=== PATIENT | female | born 1945 | race Caucasian/White ===

== ENCOUNTER 2020-08-12 12:45 | Outpatient (CLI) | payer MEDICARE, OTHER ==
--- NOTE | 2020-08-12 17:23 | CONSULTATION NOTE ---
Palliative Care Consultation - Referral Referring Provider: Dr. 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 She presented with shortness of breath and cough, in April 2020. She initially underwent a chest x-ray, that showed lung consolidation and received a course of antibiotics and steroids. Unfortunately without improvement, she underwent a CT of the chest on 06/12/2020 that showed a right- sided lung mass, bilateral pulmonary nodules, mediastinal and hilar adenopathy and liver lesions. 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 She also underwent an MRI of the brain 06/14 that showed multiple small lesions, and a CT of the abdomen and pelvis which was obtained on 07/02 that showed multiple liver lesions and a small right pleural effusion. Most persistently she has had cough, originally she had some chest pain and discomfort,Persistent fatigue, and some weight loss. She was originally worked up at [place] with Dr. Shankar, but was hoping to pursue clinical trials, so had a second opinion at [facility]. Originally she was looking at an available clinical trial there, unfortunately with her second CT scan, which showed she had significant progression, with bulky mediastinal adenopathy which was enveloping and mildly narrowing multiple proximal pulmonary vessels and the SVC appear to be mildly narrowed. They were quite disappointed on this, but actually feel like she has had some improvement on the osimertinib, With decreased cough, increased energy, improved nausea, and voice hoarseness improved. Though of note she did start the dexamethasone 2 mg about a week ago, she reports she is only take 7 days, and this will be completed today. Her most persistent symptoms continue to be the cough, her hoarseness, fatigue is improved, and does have underlying and significant anxiety. This would be understandable in the context of her diagnosis and everything she has been to over the last couple months. Palliative care has been asked to meet with patient and , to provide an extra layer of support, and provide support for symptom management and anticipatory guidance. 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 Support System: Patient lives with her cori Juarez, they have been over 55 years. He was here in the [place], and returned to [facility] to retire after he had finished his career as a master pilot. 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 They have 2 sons and a daughter, and 3 grandchildren. They do have friends and community as they have been here for quite a while, they have a [place]i home and in [place]. Family History - Family History Family History: Mother: , Alzheimer's Disease (age 88), Father: , CVA/TIA (age 90), Sister: Alive and Well (no other cancer in family), Brother: Alive and Well, CAD Medications/Allergies - Medications Home Medications: Ambulatory Orders Medication Instructions Recorded Confirmed atenoloL [Atenolol] 25 mg PO DAILY 07/27/14 08/12/20 Albuterol Sulf [Ventolin Hfa 2 puffs INH Q6HR PRN 08/12/20 08/12/20 Inhaler] Dextromethorphan Polistirex 5 ml PO BID PRN 08/12/20 08/12/20 [Delsym] Loperamide [Imodium] 2 mg PO PRN PRN MDD 8 tabs 08/12/20 08/12/20 Multivitamin [Daily Multiple 1 tab PO DAILY 08/12/20 08/12/20 Vitamin] Ondansetron [Zuplenz] 4 mg PO Q6HR PRN 08/12/20 08/12/20 Osimertinib Mesylate [Tagrisso] 80 mg PO DAILY 08/12/20 08/12/20 - Allergies Allergies/Adverse Reactions: Allergies Allergy/AdvReac Type Severity Reaction Status Date / Time prochlorperazine edisylate * Allergy Unknown Verified 07/27/14 12:26 [From Compazine] prochlorperazine maleate * Allergy Unknown Verified 07/27/14 12:26 [From Compazine] Review of Systems - Constitutional Constitutional: reports: Fatigue, Weight loss (130; lost about 6 pounds; pleased with nutritional consult from [facility]) - Ears, Nose & Throat Ears, Nose & Throat: reports: Hoarseness - Cardiovascular Cardiovascular: reports: Exertional dyspnea, Decr. exercise tolerance, Other (occ premature beats) - Respiratory Respiratory: reports: Cough (persistent and dry; non productive), SOB with exertion. denies: Wheezing, SOB at rest - Gastrointestinal Gastrointestinal: reports: Diarrhea (using immodium every 3 days; not watery just loose), Nausea (improved but low grade; responsive to ondansetron), Early satiety. denies: Constipation, Reflux/heartburn - Musculoskeletal Musculoskeletal: reports: Stiffness - Integumentary Integumentary: reports: Rash, Pruritis (with dyes with MRI), Dryness - Psychiatric Psychiatric: reports: Anxiety - Hematologic/Lymphatic Hematologic/Lymph: denies: Recurrent infections - All Other Systems All Other Systems: reports: Reviewed and negative Physical Exam - Vital Signs Temperature: 98.2 C Pulse Rate: 90 Respiratory Rate: 18 O2 Saturation: 98 (ra @ rest) Blood Pressure: 122/70 - Physical Exam General Appearance: positive: No acute distress, Alert, Anxious Eyes Bilateral: positive: Other (periorbital edema) ENT: positive: No signs of dehydration Neck: positive: Trachea midline, Other (few scattered nodes palpable) Cardiovascular: positive: Regular rate & rhythm, Tachycardia Respiratory: positive: No respiratory distress, Diminished in bases. negative: Wheezes, Rales, Rhonchi Abdomen: positive: Soft Skin: positive: Pallor, Dryness Extremities: positive: No pedal edema Neurologic/Psychiatric: positive: Oriented x3, Mood/affect nml, Flat affect Palliative Care - POLST Patient has POLST: No Pain: Pain improved, Location (chest area) Tiredness/Fatigue: Moderate (4-6) Drowsiness/Sedation: None Nausea: Mild (1-3) Anorexia: Moderate (4-6), Weight loss Dyspnea: Moderate (4-6) Depression: Mild (1-3) Anxiety: Mild (1-3) Feelings of wellbeing/Perceived Quality of Life: Fair, Comment (feeling still overwhelmed with the unknown) Sleep: Sleeps well Constipation: No Performance Status: Patient has always been very active and walked and done Body Flow, she does now have less endurance, but is continuing her walking program, is able to still ambulate on a regular basis about a mile. She is doing some chair aerobics, as well as breathing and meditation. She is mostly limited by her dyspnea and fatigue - Palliative Care Discussion: Conversation and rapport building, regarding patient telling her story. Appropriately is quite overwhelmed and anxious, hoping for the best, but also aware of his serious illness, and feeling somewhat out of control. Patient is doing some nice behaviors that are integrated into her routine. and patient appropriately tearful, expressing grief and loss particularly in the context of how quick things have developed and trying to navigate the system. Discussion including the role of palliative care. Will explore advanced care planning at future visits, patient quite fragile and anxious today. Impression and Recommendations - Palliative Care Impression: This is a cori 74-year-old woman who was recently diagnosed with metastatic lung, EGFR F mutated, with metastatic disease to brain and liver. Patient with moderate symptom burden, fatigue, cough, anxiety, and intermittent nausea. Patient is currently receiving osimertinib. Palliative care meeting with and , to introduce services, build rapport, will continue to provide support for pain and symptom management and anticipatory guidance. Recommendations/Counseling Done: 1. Cough. Patient reports has had some improvement of both cough and hoarse ness, attributes it to oral treatment, suspect may also be influenced by dexamethasone. She has used Delsym with very little improvement, as well as codeine cough syrup. Recommended Tessalon Perles 100 mg 3 times daily, given the dry nature, may or may not be of benefit but may be worth a try. She is hesitant to try anything without okay of her oncologist, wrote down recommended prescription. If worsens patient may also benefit from restarting dexamethasone at least for short period of time. 2. Anxiety. Counseling provided regarding normalizing grief and loss feelings, concern for control, did provide resources cancer [email or web address] for disease specific support groups as well as caregiving support given the limitations of the pandemic. Encouraged to reach out and explore this as a resource. Also discussed Page Dueñas with guided meditations as this is something patient is interested in integrating into care plan. If patient with persistent anxiety, or finds more bothersome, can look at introducing sertraline, patient is hoping to avoid further pharmacologic interventions. 3. Weight loss. Patient did enjoy her consultation with the [facility] food and beverage associate, recommended adding vitamin D3 2000 units daily. As well as small frequent meals. Did provide handout on nutritional shakes. Patient is feeling like she has more strategies to work with currently. 4. Metastatic lung cancer. Counseling provided regarding managing side effects, is having some loose stools not diarrhea. Has been responsive to Imodium. Nausea is improved, feels currently is managing without significant toxicity. Understanding is she will get scans, still is hoping for something in the future in the context of clinical trials. 5. Advanced care planning. Palliative care introducing role, today and to establish rapport. Did not explore advanced care planning, secondary to anxiety and initial meeting. Will look at it in the future appointments. is interested in resources, did recommend Noe's book life after diagnosis; expert advice on living well with serious illness. Plan to follow-up in 3 to 4 weeks. Given contact information encouraged to reach out for symptom management or further questions regarding support. 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 He will let me know if this would be of benefit 60 minutes with greater than 50% of this done in counseling regarding symptom management, role of palliative care, and anticipatory guidance
== END 2020-08-12 12:46 | disposition home or self-care (01) ==
LOC: PC 12:45
PROVIDERS: ATTEND Nurse Practitioner Adult Health
DX: Z51.5 Encounter for palliative care (principal); R05 Cough; F41.9 Anxiety disorder, unspecified; R63.4 Abnormal weight loss; C34.90 Malignant neoplasm of unspecified part of unspecified bronchus or lung; C78.7 Secondary malignant neoplasm of liver and intrahepatic bile duct; C79.31 Secondary malignant neoplasm of brain; Z79.899 Other long term (current) drug therapy
CPT/HCPCS: 99344

== ENCOUNTER 2020-10-15 14:30 | Outpatient (CLI) | payer MEDICARE, OTHER ==
--- NOTE | 2020-10-15 17:06 | CONSULTATION NOTE ---
Palliative Care Follow Up - Referral Referring Provider: Dr. Keren Rice Time of Visit: [id number] Referral setting: Home Referral Reason: Anxiety/Met lung CA with brain and liver mets - Information Sources Records reviewed: Previous records reviewed History/Review of Systems obtained from: Patient, Family ( Juarez present) Exam limitations: No limitations - History of Present Illness Update Brief HPI Update: This is a cori 74-year-old woman with known metastatic lung cancer, EGFR mutated. She initially presented with shortness of breath and cough in April 2020. And her staging with her MRI of the brain 06/06 showed multiple small lesions and a CT of her abdomen pelvis showed multiple liver lesions and small right pleural effusion. She has known bulky mediastinal adenopathy, and was started on osimertinib. She has done fairly well, she has tolerated treatment with only a little diarrhea, and dry skin. Her cough and shortness of breath is improved, her stamina is improving. She has undergone her first imaging studies, which has showed a good response both systemically and in her GEOLOGY TECHNICIAN. She is quite pleased with this. On her CT scan though there did show a thickening of the gastric wall around the GE junction, she does have an appointment with a GI consultation for upper endoscop y on 10/22 with most likely plans for endoscopy. In the meantime she has had a UTI, she has had history of these before. Unfortunately she did poorly on her first round of antibiotics and had to be tr eated with a different antibiotic and then a second round. Currently she is without signs or symptoms of infection. She also presented with a dilated pupil, concerned of course with her brain mets, at this point they do not think it is connected. It has fluctuated some but has improved. She has a slight dilatation on examination, does respond to light. She denies any headache but does have some light sensitivity. It also does not interfered with her vision or cause any pain, she also had a short period of infectious symptoms with a blister and redness which has since cleared up. Patient reports overall she is eating better, her weight is been 131 133, she has worked with a bar waiter/waitress from [facility] with good results. She is finding her fatigue though persistent, she is walking better and at a better pace, and has noted her cough and breathlessness though it continues is not as severe. She has not found anything that really helps, with the cough, just trying to keep her throat moist. She continues appropriately tearful with fluctuating anxiety, she has been making more forward thinking plans. She has shared her diagnosis with more people but still remains quite close to the chest. She does find her supportive, and looking forward to a girlfriend is coming back to [place] soon, so finding that she is settling in some. Social History - Living Situation Living arrangement: At home Living Situation: With spouse/s.o. 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 Everybody is getting her vaccinations so hopefully will be able to see each other soon. She is looking forward to a family reunion in November with her siblings. Starting to plan for boat trips and possibly [place] in June. Medications/Allergies - Medications Home Medications: Ambulatory Orders Medication Instructions Recorded Confirmed atenoloL [Atenolol] 25 mg PO DAILY 07/27/14 08/12/20 Albuterol Sulf [Ventolin Hfa 2 puffs INH Q6HR PRN 08/12/20 08/12/20 Inhaler] Dextromethorphan Polistirex 5 ml PO BID PRN 08/12/20 08/12/20 [Delsym] Loperamide [Imodium] 2 mg PO PRN PRN MDD 8 tabs 08/12/20 08/12/20 Multivitamin [Daily Multiple 1 tab PO DAILY 08/12/20 08/12/20 Vitamin] Ondansetron [Zuplenz] 4 mg PO Q6HR PRN 08/12/20 08/12/20 Osimertinib Mesylate [Tagrisso] 80 mg PO DAILY 08/12/20 08/12/20 - Allergies Allergies/Adverse Reactions: Allergies Allergy/AdvReac Type Severity Reaction Status Date / Time prochlorperazine edisylate * Allergy Unknown Verified 07/27/14 12:26 [From Compazine] prochlorperazine maleate * Allergy Unknown Verified 07/27/14 12:26 [From Compazine] Review of Systems - Constitutional Constitutional: reports: Fatigue, Weight stable (131-133) - Eyes Eyes: reports: Other (pupil diliatation left). denies: Vision loss - Ears, Nose & Throat Ears, Nose & Throat: reports: Hoarseness (improved) - Cardiovascular Cardiovascular: reports: Exertional dyspnea (improved), Decr. exercise tolerance, Other (occ premature beats) - Respiratory Respiratory: reports: Cough (persistent and dry; non productive), SOB with exertion. denies: Wheezing, SOB at rest - Gastrointestinal Gastrointestinal: reports: Diarrhea (using immodium every 3 days; not watery just loose), Reflux/heartburn (occasional Rolaids; worsening overall), Early satiety. denies: Constipation - Musculoskeletal Musculoskeletal: reports: Stiffness - Integumentary Integumentary: reports: Dryness, Nail changes - Psychiatric Psychiatric: reports: Anxiety - Hematologic/Lymphatic Hematologic/Lymph: reports: Recurrent infections (recent treatment UTI), Other (has received both vacaines) - All Other Systems All Other Systems: reports: Reviewed and negative Physical Exam - Vital Signs Temperature: 97.7 C Pulse Rate: 84 Respiratory Rate: 18 O2 Saturation: 95 (ra @ rest) Blood Pressure: 112/70 - Physical Exam General Appearance: positive: No acute distress, Alert, Anxious Eyes Bilateral: positive: Other (periorbital edema) ENT: positive: No signs of dehydration Neck: positive: Trachea midline, Other (few scattered nodes palpable) Cardiovascular: positive: Regular rate & rhythm Respiratory: positive: No respiratory distress, Diminished in bases (right greater than left), Wheezes (LLL). negative: Rales, Rhonchi Abdomen: positive: Soft Skin: positive: Pallor (sallow), Dryness Extremities: positive: No pedal edema Neurologic/Psychiatric: positive: Oriented x3, Mood/affect nml Palliative Care - POLST Patient has POLST: No Pain: No pain Tiredness/Fatigue: Mild (1-3) Drowsiness/Sedation: None Nausea: Mild (1-3) Anorexia: Mild (1-3) Dyspnea: Moderate (4-6) Depression: Mild (1-3) Anxiety: Moderate (4-6) Feelings of wellbeing/Perceived Quality of Life: Good, Acceptable, Improved Sleep: Sleeps well Performance Status: Patient continues to improve, she is walking every day, anywhere from 1 and half to 3 miles, reports her pace is picking up. She does have some decrease in strength from her baseline, but is able to manage her ADLs and household tasks. - Palliative Care Discussion: She is settling in some to her diagnosis, but remains appropriately still anxious and tearful. She is sitting some goals for the future, is quite pleased with the results of her scans and response to treatment. She does understand the seriousness of her illness, but is trying to settle into "her new normal". She has had several other health problems crop up, but does seem to be taking it in stride. She does not have follow-up until December back at [facility]. Impression and Recommendations - Palliative Care Impression: This is a cori 74-year-old woman with metastatic lung cancer EGFR mutated, with metastatic disease to brain and liver. She is improving both clinically, as well as her CT scan show improvement. She is tolerating the osimertinib with only mild symptom burden. Palliative care providing support for symptom management and anticipatory guidance, and continuing to build rapport. Recommendations/Counseling Done: 1. Cough. Patient has had some improvement both in cough and hoarseness, more clinically attributed to her treatment. She has not found anything that has very much addressed or improve the cough, other than keeping her throat moist. We will continue to monitor. 2. Anxiety. Counseling again provided regarding normalizing grief and loss feelings, reinforced supportive care that she is engaging in, as well as reaching out to her community/[place] to support her. She is somewhat introverted. Reminded her of the support group through cancer care.work. She is somewhat pill adverse, she may benefit from sertraline if continues to be persistent, but does seem to be improved at this visit. 3. Weight loss. Patient remained stable between 131 133. She did have a dip in her weight with her UTI, but feels like she is doing better now. Reminded goal is for no further weight loss, weight gain is complicated. 4. Metastatic lung cancer. Patient is doing well on her treatment, her diarrhea is responding to Imodium, is pleased with the results of her scans. Is trying to is set short-term goals, she does understand her treatment is palliative in nature. 5. History of UTIs. Patient has had history of UTIs in past, she is working on pushing fluids, did introduce d-mannose as her organism was E. coli. We will continue to monitor. 6. Advanced care planning. Patient is sitting short-term goals, she has had a nice visit with her sister last week. We will continue to introduce Legacy work, advanced care planning, and support through palliative care. Will allow patient to provide cues for moving forward, as it is important for her to have control in the context of her coping. 45 minutes with greater than 50% of this time in counseling regarding symptom management, anticipatory guidance, setting of rapport, will continue to meet every couple months until progression of symptoms or disease.
== END 2020-10-15 14:31 | disposition home or self-care (01) ==
LOC: PC 14:30
PROVIDERS: ATTEND Nurse Practitioner Adult Health
DX: Z51.5 Encounter for palliative care (principal); R05 Cough; F41.9 Anxiety disorder, unspecified; R63.4 Abnormal weight loss; C34.90 Malignant neoplasm of unspecified part of unspecified bronchus or lung; C79.31 Secondary malignant neoplasm of brain; C78.7 Secondary malignant neoplasm of liver and intrahepatic bile duct; Z87.440 Personal history of urinary (tract) infections; Z79.899 Other long term (current) drug therapy
CPT/HCPCS: 99349

== ENCOUNTER 2021-06-18 04:05 | Outpatient (CLI) | payer MEDICARE, OTHER | END 2021-06-18 04:06 | disposition critical access hospital (66) | LOC: EMS 04:05 | DX: M54.50 Low back pain, unspecified (principal); R19.7 Diarrhea, unspecified; R11.2 Nausea with vomiting, unspecified | CPT/HCPCS: A0425; A0427 ==

== ENCOUNTER 2021-06-18 04:45 | Emergency (ER) | payer MEDICARE, OTHER ==
--- NOTE | 2021-06-18 04:46 | ED Physician Documentation ---
PD HPI BACK PAIN - Stated complaint Stated Complaint: Back Pain - History obtained from History obtained from: Patient, EMS - History of Present Illness Timing - onset: Enter time (01:30), Today Timing - details: Abrupt onset Pain level now: 8 Improves with: Rest, Meds Worsened by: Movement (partial component of exacerbation with movement) Contributing factors: Cancer Similar symptoms before: Has not had sx before Recently seen: Not recently seen - Additional information Additional information: awoke at approximately 1:30 AM this morning with pain across her lower back. Denies h/o similar symptoms. Pain was waxing and waning without apparent exacerbating or ameliorating factors, and it gradually became most pronounced on right side (right mid/lower back). It was associated with nausea and vomiting. Denies injury. she had near-resolution of symptoms with 50 micrograms of fentanyl and 4mg zofran administered by EMS [employer]. Review of Systems Constitutional: denies: Fever, Chills, Sweats Cardiac: reports: Reviewed and negative Respiratory: reports: Reviewed and negative GI: reports: Nausea, Vomiting. denies: Abdominal Pain : denies: Dysuria, Frequency, Hematuria Skin: denies: Rash Musculoskeletal: reports: Back pain Neurologic: denies: Generalized weakness, Focal weakness, Numbness PD PAST MEDICAL HISTORY - Past Medical History Cardiovascular: Arrhythmia (hx) Respiratory: Other (Lung CA) Neuro: Other (brain mets) Endocrine/Autoimmune: None GI: None OUTSOLE PARAFFINER: None HEENT: Other (allergic rhinitis) Psych: Anxiety Musculoskeletal: Fatigue - Past Surgical History Past Surgical History: Yes Ortho: Hip replacement /OUTSOLE PARAFFINER: Other (ovarian cyst removal) HEENT: Rhinoplasty - Present Medications Home Medications: Ambulatory Orders Medication Instructions Recorded Confirmed atenoloL [Atenolol] 25 mg PO DAILY 07/27/14 08/12/20 Albuterol Sulf [Ventolin Hfa 2 puffs INH Q6HR PRN 08/12/20 08/12/20 Inhaler] Dextromethorphan Polistirex 5 ml PO BID PRN 08/12/20 08/12/20 [Delsym] Loperamide [Imodium] 2 mg PO PRN PRN MDD 8 tabs 08/12/20 08/12/20 Multivitamin [Daily Multiple 1 tab PO DAILY 08/12/20 08/12/20 Vitamin] Ondansetron [Zuplenz] 4 mg PO Q6HR PRN 08/12/20 08/12/20 Osimertinib Mesylate [Tagrisso] 80 mg PO DAILY 08/12/20 08/12/20 - Allergies Allergies/Adverse Reactions: Allergies Allergy/AdvReac Type Severity Reaction Status Date / Time prochlorperazine edisylate * Allergy Unknown Verified 07/27/14 12:26 [From Compazine] prochlorperazine maleate * Allergy Unknown Verified 07/27/14 12:26 [From Compazine] - Social History Does the pt smoke?: No Smoking Status: Never smoker Does the pt have substance abuse?: No - POLST Patient has POLST: No PD ED PE NORMAL - Vitals Vital signs reviewed: Yes - General General: Alert and oriented X 3, No acute distress, Well developed/nourished - HEENT HEENT: Moist mucous membranes - Neck Neck: Supple, no meningeal sign - Cardiac Cardiac: No murmur - Respiratory Respiratory: No respiratory distress - Abdomen Abdomen: Soft, Non tender, Non distended - Back Back: No CVA TTP, No spinal TTP - Derm Derm: No rash - Extremities Extremities: No edema - Neuro Neuro: No motor deficit, No sensory deficit PD ED PE EXPANDED - Cardiac Cardiac: Tachy, Regular Rhythm Results - Vitals Vitals: Oxygen O2 Source Room air - EKG (time done) No standard instances Rate: Rate (enter#) (113) Rhythm: Sinus tachycardia [place]: LAD QRS: Normal Ischemia: Normal ST segments, Q waves (III, aVF) - Labs Labs: Microbiology 06/18/21 07:10 Urine Culture - Final Urine,Clean Catch 10-50,000 COLONIES/ML Polymicrobial growth including potential pathogens. This is suggestive of skin or other contamination. Laboratory Tests 06/18/21 06/18/21 06/18/21 06:09 06:09 06:09 WBC 20.6 H RBC 3.83 L Hgb 11.8 L Hct 35.5 L MCV 92.7 MCH 30.8 MCHC 33.2 RDW 15.1 H Plt Count 198 MPV 9.3 Neut # (Auto) Not Reportable Lymph # (Auto) Not Reportable Ware # (Auto) Not Reportable Eos # (Auto) Not Reportable Baso # (Auto) Not Reportable Absolute Nucleated RBC Not Reportable Total Counted 100 Band Neuts % (Manual) 7 Abnorm Lymph % (Manual) 0 Nucleated RBC % Not Reportable Neutrophils # (Manual) 19.8 H Lymphocytes # (Manual) 0.2 L Monocytes # (Manual) 0.6 Eosinophils # (Manual) 0.0 Basophils # (Manual) 0.0 Differential Comment MANUAL DIFFERENTIAL WBC Morphology NORMAL APPEARANCE Platelet Estimate NORMAL (130-450,000) Platelet Morphology NORMAL APPEARANCE RBC Morph Micro Appear NORMAL APPEARANCE Sodium 139 Potassium 3.1 L Chloride 108 Carbon Dioxide 21 Anion Gap 10.0 BUN 30 H Creatinine 1.1 H Estimated GFR (MDRD) 48 L Glucose 112 H Calcium 8.6 Total Bilirubin 0.6 AST 50 H ALT 37 Alkaline Phosphatase 45 Total Protein 5.9 L Albumin 3.6 Globulin 2.3 Albumin/Globulin Ratio 1.6 Lipase 35 TSH 2.24 Urine Color Urine Clarity Urine pH Ur Specific Lyle Urine Protein Urine Glucose (UA) Urine Ketones Urine Occult Blood Urine Nitrite Urine Bilirubin Urine Urobilinogen Ur Leukocyte Esterase Urine RBC Urine WBC Ur Squamous Epith Cells Urine Bacteria Ur Microscopic Review Urine Culture Comments 06/18/21 07:10 WBC RBC Hgb Hct MCV MCH MCHC RDW Plt Count MPV Neut # (Auto) Lymph # (Auto) Ware # (Auto) Eos # (Auto) Baso # (Auto) Absolute Nucleated RBC Total Counted Band Neuts % (Manual) Abnorm Lymph % (Manual) Nucleated RBC % Neutrophils # (Manual) Lymphocytes # (Manual) Monocytes # (Manual) Eosinophils # (Manual) Basophils # (Manual) Differential Comment WBC Morphology Platelet Estimate Platelet Morphology RBC Morph Micro Appear Sodium Potassium Chloride Carbon Dioxide Anion Gap BUN Creatinine Estimated GFR (MDRD) Glucose Calcium Total Bilirubin AST ALT Alkaline Phosphatase Total Protein Albumin Globulin Albumin/Globulin Ratio Lipase TSH Urine Color YELLOW Urine Clarity CLEAR Urine pH 5.0 Ur Specific Lyle 1.025 Urine Protein NEGATIVE Urine Glucose (UA) NEGATIVE Urine Ketones NEGATIVE Urine Occult Blood NEGATIVE Urine Nitrite NEGATIVE Urine Bilirubin NEGATIVE Urine Urobilinogen 0.2 (NORMAL) Ur Leukocyte Esterase SMALL H Urine RBC 0-5 Urine WBC 4-5 Ur Squamous Epith Cells RARE Squamous Urine Bacteria Rare Ur Microscopic Review INDICATED Urine Culture Comments INDICATED - Rads (name of study) CT A/P Radiology: Prelim report reviewed, See rad report PD MEDICAL DECISION MAKING - ED course Complexity details: reviewed results, re-evaluated patient, considered differential, d/w patient ED course: presents with atraumatic low back pain that woke her from sleep early this morning. significant improvement with fentanyl and zofran given by EMS and did not require any pain medication during ED stay, as there was no recurrence. CT A/P does not reveal etiology of symptoms. Findings of liver masses and L2 hemangioma are noted on previous, recent CT (this was performed at any facility, but patient is able to access her records on her phone and shows me the reading). She has leukocytosis but no elements of HPI, exam, testing to suggest infectious cause. She is given total of 2 liters NS IV with improvement in her tachycardia. Results reviewed with patient and she is discharged after return precautions were discussed Departure - Departure Disposition: 01 Home, Self Care Clinical Impression: Dehydration Back pain Qualifiers: Back pain location: low back pain Chronicity: acute Back pain laterality: bilateral Sciatica presence: without sciatica Qualified Code(s): M54.50 - Low back pain, unspecified Condition: Good Instructions: ED Dehydration, ED Neck Back Pain General Follow-Up: Brock mAes MD [Primary Care Provider] - Comments: The cause of your back pain is not clear at this time; your tests do not have findings that would explain the cause. You do have an elevated white blood cell count, but this is a non-specific finding, and there are no findings on the other tests to suggest an infection. Follow up with your primary care provider, next available appointment. Please return to the emergency department if your symptoms worsen in any way. Discharge Date/Time: 06/18/21 11:38
[2021-06-18] MEDS ORDERED: SODIUM CHLORIDE 0.9% 1,000 ML IV STA ×2 (05:09→07:52)
[2021-06-18 06:17] LABS: BASOPHILS % (AUTO) 0.3 %; EOSINOPHILS % (AUTO) 0.1 %; HCT - HEMATOCRIT 35.5 % (37.0-47.0); HGB - HEMOGLOBIN 11.8 g/dL (12.0-16.0); LYMPHOCYTES % (AUTO) 0.6 %; MEAN CORPUSCULAR HEMOGLOBIN 30.8 pg (27.0-31.0); MEAN CORPUSCULAR HGB CONC 33.2 g/dL (32.0-36.0); MEAN CORPUSCULAR VOLUME 92.7 fL (81.0-99.0); MEAN PLATELET VOLUME 9.3 fL (7.9-10.8); NEUTROPHILS % (AUTO) 95.6 %; PLT - PLATELET COUNT 198 10^3/uL (130-450); RED BLOOD COUNT 3.83 10^6/uL (4.20-5.40); RED CELL DISTRIBUTION WIDTH 15.1 % (12.0-15.0); WHITE BLOOD COUNT 20.6 x10^3/uL (4.8-10.8)
[2021-06-18 06:20] LABS: ABNORMAL LYMPHS % (MANUAL) 0 %
[2021-06-18 06:28] LABS: ALBUMIN 3.6 g/dL (3.2-5.5); ALBUMIN/GLOBULIN RATIO 1.6 (1.0-2.2); BILIRUBIN,TOTAL 0.6 mg/dL (0.2-1.0); CALCIUM 8.6 mg/dL (8.5-10.3); CREATININE 1.1 mg/dL (0.4-1.0); POTASSIUM 3.1 mmol/L (3.5-5.0); TOTAL PROTEIN 5.9 g/dL (6.7-8.2)
[2021-06-18 06:34] LABS: BAND NEUTROPHILS % (MANUAL) 7 %; LYMPHOCYTES # (MANUAL) 0.2 10^3/uL (1.5-3.5); LYMPHOCYTES % (MANUAL) 1 %; MONOCYTES # (MANUAL) 0.6 10^3/uL (0.0-1.0); NEUTROPHILS # (MANUAL) 19.8 10^3/uL (1.5-6.6)
[2021-06-18 06:35] LABS: DIFFERENTIAL COMMENT MANUAL DIFFERENTIAL; PLATELET ESTIMATE, MANUAL NORMAL (130-450,000) (NORMAL); PLATELET MORPHOLOGY NORMAL APPEARANCE (NORMAL); RBC MORPHOLOGY (MULTIPLE) NORMAL APPEARANCE (NORMAL); WBC MORPHOLOGY (MULTIPLE) NORMAL APPEARANCE (NORMAL)
[2021-06-18 07:23] LABS: BILIRUBIN,URINE NEGATIVE (NEGATIVE); GLUCOSE, URINE (UA) NEGATIVE (NEGATIVE); KETONES,URINE (UA) NEGATIVE (NEGATIVE); LEUKOCYTE ESTERASE, URINE SMALL (NEGATIVE); NITRITE,URINE NEGATIVE (NEGATIVE); OCCULT BLOOD,URINE NEGATIVE (NEGATIVE); PROTEIN,URINE NEGATIVE (NEGATIVE); UROBILINOGEN,URINE 0.2 (NORMAL) E.U./dL (NORMAL)
[2021-06-18 07:24] LABS: CLARITY,URINE CLEAR (CLEAR)
[2021-06-18 07:34] LABS: BACTERIA,URINE Rare /HPF (None Seen); RBC,URINE 0-5 /HPF (0-5); SQUAMOUS EPITHELIAL CELL,UR RARE Squamous (<= Few)
--- NOTE | 2021-06-18 07:57 | ED Physician Documentation ---
ED Addendum - Addendum Addendum: 06/18/21 07:52 at shift change patient evaluated with back pain that is improved modified by movement. Patient has periodic bouts of vomiting and diarrhea related to medications for her metastatic lung CA and she has had recent episode of vomiting and diarrhea yesterday. She feels dehydrated and after receiving IV saline her IVC is checked and she continues to be dehydrated with an IVC measuring 1.12 with complete collapse indicating an additional liter deficit and she is given more saline. The symptoms she came to the hospital for are much improved.
--- NOTE | 2021-06-18 08:20 | CT Report ---
PROCEDURE: Abdomen/Pelvis WO INDICATIONS: right flank/low back pain TECHNIQUE: Noncontrast 5 mm thick sections acquired from the diaphragms to the symphysis. 5 mm coronal and sagi ttal reformats were then performed. For radiation dose reduction, the following was used: automated exposure control, adjustment of mA and/or kV according to patient size. COMPARISON: None. FINDINGS: Image quality: There is artifact associated with the metallic hardware. ABDOMEN: Lung bases: Mild dependent atelectasis is seen. Heart size is normal. A small hiatal hernia is incid entally noted. There is a small pericardial effusion. Solid organs: Within the right liver dome, there is an ovoid soft tissue mass that measures 35 Hounsf ield units and 4.2 cm. Smaller hypodense lesions are seen elsewhere within the liver. Liver demonstra jordyn normal overall size. The spleen demonstrates normal size and demonstrates no focal lesions. Gallb ladder wall does not appear thickened. Pancreas is normal in contours. No adrenal nodules. Kidneys are normal in size, without hydronephrosis or nephrolithiasis. Peripelvic kidney cysts are s een. Peritoneum and bowel: Unenhanced bowel loops demonstrate normal wall thickness and caliber. No free fluid or air. Nodes and vessels: No retroperitoneal or mesenteric adenopathy by size criteria. Aorta and inferior vena cava are normal in caliber. Miscellaneous: No ventral hernias. PELVIS: Genitourinary: Bladder wall thickness is normal. The uterus demonstrates an unremarkable appearance for age. No adnexal masses are seen. Miscellaneous: No inguinal hernias or adenopathy. Bones: No suspicious bony lesions. No vertebral body compression fractures. Right hip arthroplasty hardware is seen, with associated streak artifact. An L2 vertebral body hemangioma is seen. Levoconve x scoliotic curvature is seen. Degenerative changes are seen throughout, which are worst involving th e lumbar spine. IMPRESSION: No findings of stones or obstructive uropathy can be seen. Peripelvic renal cysts are seen. Presumed liver metastatic lesions are seen in this patient with a known history of lung cancer. There is a small pericardial effusion. Incidental note is made of: Small hiatal hernia Dependent atelectasis L2 vertebral body hemangioma Levoconvex scoliotic curvature Right hip arthroplasty hardware Note: No significant discrepancy from the preliminary report. Reviewed by: Korey Fierro MD on 06/18/2021 7:19 AM TIFFANIE Approved by: Korey Fierro MD on 06/18/2021 7:19 AM TIFFANIE Station ID: [id number]
[2021-06-18] MEDS ORDERED: atenoloL 25 MG TABLET PO STA (09:36)
[2021-06-18 10:43] VITALS: BP 93/51
== END 2021-06-18 11:38 | disposition home or self-care (01) ==
LOC: EDUNIT# → ED 04:45
DX: M54.50 Low back pain, unspecified (principal); E86.0 Dehydration; R00.0 Tachycardia, unspecified; C34.90 Malignant neoplasm of unspecified part of unspecified bronchus or lung; C79.31 Secondary malignant neoplasm of brain
CPT/HCPCS: 36415; 74176; 80053; 81001; 83690; 84443; 85025; 87086; 93005; 96360; 96361; 99284; A9270; 81003